=== PATIENT | female | born 2000 | race American Indian/Alaskan Native ===

== ENCOUNTER 2021-11-08 12:09 | Emergency (ER) | payer OTHER ==
[2021-11-08 12:26] VITALS: BP 109/68
--- NOTE | 2021-11-08 15:40 | Emergency Department Report ---
ED Back Pain/Injury HPI - General Chief Complaint: Pain General Stated Complaint: LOWER BACK PAIN/17 WKS PREG Source: patient Limitations: No Limitations - History of Present Illness Initial Comments: Patient is a A0 21-year-old -[place]ic female who is approximately 14 weeks gestation presents to the ED with acute onset low back pain that radiates to the buttocks for the last 1 week. Patient states that she has been taking Tylenol with no relief. Patient denies fall, traumatic injury, heavy lifting, fever, chills, abdominal pain, vaginal bleeding, vaginal discharge, dizziness, syncope, nausea and vomiting, numbness and tingling or weakness of lower extremities bilaterally. MD Complaint: back pain (Low back pain) -: Sudden, week(s) (1) Similar Symptoms Previously: No Place: home Radiation: none Severity: moderate Severity scale (0 -10): 6 Quality: sharp, aching Consistency: constant Improves With: none Worsens With: movement Context: turning/twisting Associated Symptoms: denies other symptoms. denies: confusion, weakness, chest pain, numbness, difficulty walking, cough, difficulty urinating, diaphoresis, fever/chills, constipation, headaches, abdominal pain, loss of appetite, malaise, nausea/vomiting, rash, seizure, shortness of breath, syncope, other - Related Data Previous Rx's Medication Instructions Recorded Last Taken Type Acetaminophen [Tylenol] 500 mg PO Q6HR PRN #40 tablet 11/08/21 Unknown Rx Baclofen 20 mg PO Q12H PRN #30 tab 11/08/21 Unknown Rx Allergies Allergy/AdvReac Type Severity Reaction Status Date / Time No Known Allergies Allergy Verified 11/08/21 12:26 ED Review of Systems ROS: Stated complaint: LOWER BACK PAIN/17 WKS PREG Other details as noted in HPI Constitutional: denies: chills, fever Eyes: denies: eye pain, eye discharge, vision change ENT: denies: ear pain, throat pain Respiratory: denies: cough, shortness of breath, wheezing Cardiovascular: denies: chest pain, palpitations Endocrine: no symptoms reported Gastrointestinal: denies: abdominal pain, nausea, vomiting, diarrhea Genitourinary: denies: urgency, dysuria, discharge Musculoskeletal: back pain (Low back pain). denies: joint swelling, arthralgia Skin: denies: rash, lesions Neurological: denies: headache, weakness, paresthesias Psychiatric: denies: anxiety, depression Hematological/Lymphatic: denies: easy bleeding, easy bruising ED Past Medical Hx - Past Medical History Previous Medical History?: No - Social History Smoking Status: Never Smoker Substance Use Type: None - Medications Home Medications: Home Medications Medication Instructions Recorded Confirmed Last Taken Type Acetaminophen [Tylenol] 500 mg PO Q6HR PRN #40 tablet 11/08/21 Unknown Rx Baclofen 20 mg PO Q12H PRN #30 tab 11/08/21 Unknown Rx ED Physical Exam - General Limitations: No Limitations General appearance: alert, in no apparent distress - Head Head exam: Present: atraumatic, normocephalic, normal inspection - Eye Eye exam: Present: normal appearance, PERRL, EOMI Pupils: Present: normal accommodation - ENT ENT exam: Present: normal exam, normal orophraynx, mucous membranes moist, TM's normal bilaterally, normal external ear exam - Neck Neck exam: Present: normal inspection, full ROM. Absent: tenderness - Respiratory Respiratory exam: Present: normal lung sounds bilaterally. Absent: respiratory distress, wheezes, rales, rhonchi, chest wall tenderness, accessory muscle use, decreased breath sounds, prolonged expiratory - Cardiovascular Cardiovascular Exam: Present: regular rate, normal rhythm, normal heart sounds. Absent: systolic murmur, diastolic murmur, rubs, gallop - GI/Abdominal GI/Abdominal exam: Present: soft, normal bowel sounds. Absent: tenderness, guarding, rebound, hyperactive bowel sounds, hypoactive bowel sounds, organomegaly - Extremities Exam Extremities exam: Present: normal inspection, full ROM, normal capillary refill. Absent: tenderness, pedal edema, joint swelling, calf tenderness - Back Exam Back exam: Present: normal inspection, full ROM, tenderness (Palpable lumbosacral and coccygeal paraspinal musculoskeletal tenderness), muscle spasm, paraspinal tenderness. Absent: CVA tenderness (R), CVA tenderness (L), vertebral tenderness, rash noted - Neurological Exam Neurological exam: Present: alert, oriented X3, CN II-XII intact, normal gait, reflexes normal - Psychiatric Psychiatric exam: Present: normal affect, normal mood - Skin Skin exam: Present: warm, dry, intact, normal color. Absent: rash ED Course Vital Signs 11/08/21 12:21 Temperature 98.4 F Pulse Rate 101 H Respiratory 16 Rate Blood Pressure 109/68 O2 Sat by Pulse 99 Oximetry ED Medical Decision Making - Medical Decision Making This is a A0 21-year-old -[place] female who is approximately 14 weeks gestation presents to the ED with acute onset low back pain that radiates to the buttocks for the last 1 week. Patient states that she has been taking Tylenol with no relief. In the ED, patient is alert and oriented x3 and is not in any distress. Patient was discharged home on medications based on the history and physical exam findings. Patient symptoms are likely musculo skeletal. Patient was discharged home and advised to follow-up with the [facility] physician in 5 to 7 days for reevaluation or return to the ED immediately if symptoms get worse. - Differential Diagnosis Muscle spasm; muscle strain; Critical care attestation.: If time is entered above; I have spent that time in minutes in the direct care of this critically ill patient, excluding procedure time. ED Disposition Clinical Impression: Spasm of muscle of lower back, Strain of muscle, fascia and tendon of lower back, initial encounter Acute low back pain without sciatica Qualifiers: Back pain laterality: bilateral Qualified Code(s): M54.50 - Low back pain, unspecified Disposition: 01 HOME / SELF CARE / HOMELESS Is pt being admited?: No Does the pt Need Aspirin: No Condition: Stable Instructions: Muscle Cramps and Spasms, [id number], Lumbosacral Strain, Low Back Sprain or Strain Rehab-SportsMed, Tailbone Injury, [id number] Additional Instructions: Your symptoms as musculoskeletal, therefore take medications as advised, drink plenty of fluids and follow-up with your primary care physician in 5 to 7 days for reevaluation. Return to the ED immediately if symptoms get worse. Prescriptions: Acetaminophen [Tylenol] 500 mg PO Q6HR PRN #40 tablet PRN Reason: Pain , Severe (7-10) Baclofen 20 mg PO Q12H PRN #30 tab PRN Reason: Muscle Spasm Referrals: MELIDA PAVON MD [Primary Care Provider] - 3-5 Days Time of Disposition: 15:39 Print Language: UZBEK
== END 2021-11-08 16:15 | disposition home or self-care (01) ==
LOC: ED 12:09
DX: O26.892 Other specified pregnancy related conditions, second trimester (principal); S39.012A Strain of muscle, fascia and tendon of lower back, initial encounter; M62.830 Muscle spasm of back; X58.XXXA Exposure to other specified factors, initial encounter; Y93.89 Activity, other specified; Y92.89 Other specified places as the place of occurrence of the external cause; Y99.8 Other external cause status; Z3A.14 14 weeks gestation of pregnancy
CPT/HCPCS: 99282

== ENCOUNTER 2022-01-26 18:21 | Inpatient (IN) | payer OTHER ==
[2022-01-26] MEDS ORDERED: fentaNYL 100 MCG/2 ML INJ IV PRN (19:59)
[2022-01-26] MEDS ORDERED: LOPERAMIDE 2 MG CAP PO PRN (19:59)
[2022-01-26] MEDS ORDERED: ONDANSETRON 4 MG/2 ML INJ IV PRN (19:59)
[2022-01-26] MEDS ORDERED: CARBOPROST TROMETHAMINE 250 MCG/1 ML INJ IM PRN (19:59)
[2022-01-26] MEDS ORDERED: OXYTOCIN 10 UNIT/1 ML INJ IM PRN (19:59)
[2022-01-26] MEDS ORDERED: METHYLERGONOVINE MALEATE 0.2 MG/ML VIAL IM PRN (19:59)
[2022-01-26] MEDS ORDERED: BUTORPHANOL 2 MG/1 ML INJ IV PRN (19:59)
[2022-01-26] MEDS ORDERED: miSOPROStol 200 MCG TAB PR PRN (19:59)
[2022-01-26] MEDS ORDERED: MINERAL OIL 30 ML ORAL LIQD PO PRN (19:59)
[2022-01-26] MEDS ORDERED: TERBUTALINE 1 MG/1 ML INJ SUB-Q PRN (19:59)
[2022-01-26] MEDS ORDERED: LIDOCAINE (2%) 20 MG/1 ML VIAL 20 ML MDV INFILTRATI ONE (19:59)
[2022-01-26] MEDS ORDERED: ePHEDrine SULFATE 50 MG/1 ML INJ IV PRN (19:59)
[2022-01-26] MEDS ORDERED: LACTATED RINGERS 1,000 ML IV SCH (20:00)
[2022-01-26] MEDS ORDERED: OXYTOCIN DRIP 30 UNITS/500 ML BAG IV SCH (20:00)
--- NOTE | 2022-01-26 20:09 | History and Physical Report ---
History of Present Illness Date of examination: 01/26/22 Chief complaint: Admitted for IOL @ 28wks IUFD History of present illness: EDC Calculations by LMP: 04/14/2022 Past History : 1 Term Births: 0 Premature Births: 0 Living Children: 0 Para: 0 Mult. Births: 0 Prev : 0 Prev. attempt? 0 Aborta: 0 Elect. Ab: 0 Spont. Ab: 0 Ectopics: 0 Past Medical History: Reviewed and updated today: Asthma - last attack 2020 - has albuterol inhaler Headaches(Migraines) Past Surgical History: Reviewed and updated today: negative Family History Summary: Father - Has Family History of Hypertension - Entered On: 10/12/2021 Father - Has Family History of Diabetes - Entered On: 10/12/2021 General Comments - FH: Father - CHF Social History: Patient is single Smoking History: Patient has never smoked. Risk Factors: Smoked Tobacco Use: Never smoker Smokeless Tobacco Use: Never Counseled to Quit/Cut Down: yes Passive Smoke Exposure: no HIV High Risk Behavior: no Caffeine Use: 0 drinks per day Exercise: no Seatbelt Use: preg-certified alcohol and drug counselor % No Dietary Counseling Reason: pn yes Alcohol Use: yes Type: weekly use prior to Drug Use: no Past Medical History Anesthesia Complications: negative Anemia: negative Autoimmune Disorder: negative Bleeding Disorder: negative Blood Transfusions: negative Breast Disease: negative Diabetes: negative Heart Disease: negative Hypertension: negative Hepatitis/Liver Disease: negative Kidney Disease/UTI: negative Neurologic/Epilepsy/Migraines: negative Phlebitis/Varicosities: negative Psychiatric: negative Pulmonary Disease/Asthma: positive, asthma Thyroid Disease: negative Hospitalizations: negative Surgery (Non-twisting operator): negative Abnormal PAP: negative LEANA Exposure: negative Infertility: negative Uterine Anomaly: negative Uterine Surgery (not C/S): negative Other Gynecologic Problems: negative Family Hx: Father - CHF Social Hx: Patient is single Smoking History: Patient has never smoked. Infection History Hx of STD: none HIV Risk Eval: no Hepatitis B Risk Eval: low risk Personal hx. of genital herpes: no Rash, Viral, or Febrile illness since last LMP? no Varicella/Chicken Pox Status: Unknown TB Risk: no Genetic History Congenital Heart Defect: Mom: no Dad: no Blanca Disease: Mom: no Dad: no Thalassemia Mom: no Dad: no Neural Tube Defect Mom: no Dad: no Down's Syndrome Mom: no Dad: no Stephen-Sachs Mom: no Dad: no Sickle Cell Disease/Trait Mom: no Dad: no Hemophilia Mom: no Dad: no Muscular Dystrophy Mom: no Dad: no Cystic Fibrosis Mom: no Dad: no Fátima Chorea Mom: no Dad: no Mental Retardation Mom: no Dad: no Fragile X Mom: no Dad: no Other Genetic/Chromosomal Disorder Mom: no Dad: no Child w/other defect Mom: no Dad: no Enviromental Exposures Enviromental Exposures Reviewed Xray Exposure: no Medication, drug, or alcohol use since LMP: no Chemical/Other Exposure: no Exposure to Cat Liter: no Hx of Parvovirus (Fifth Disease): no Occupational Exposure to Children: none 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 Medications (reviewed today): None Current Allergies (reviewed today): No known allergies Past History Past Medical History: other (see HPI) Past Surgical History: other (see HPI) STRATEGY CONSULTANT History: other (see HPI) Family/Genetic History: other (see HPI) Social history: no significant social history, single, lives with family - Obstetrical History Expected Date of Delivery: 04/14/22 Actual Gestation: 28 Week(s) 6 Day(s) : 1 Para: 0 Hx # Term Pregnancies: 0 Number of Pregnancies: 0 Spontaneous Abortions: 0 Induced : 0 Number of Living Children: 0 Medications and Allergies Allergies Allergy/AdvReac Type Severity Reaction Status Date / Time No Known Allergies Allergy Verified 11/08/21 12:26 Home Medications Medication Instructions Recorded Confirmed Last Taken Type Acetaminophen [Tylenol] 500 mg PO Q6HR PRN #40 tablet 11/08/21 Unknown Rx Baclofen 20 mg PO Q12H PRN #30 tab 11/08/21 Unknown Rx Active Meds: Active Medications Acetaminophen (Acetaminophen 325 Mg Tab) 650 mg PO Q4H PRN PRN Reason: Pain, Mild (1-3) Butorphanol Tartrate (Butorphanol 2 Mg/1 Ml Inj) 1 mg IV Q2H PRN PRN Reason: Pain, Moderate(4-6) LABOR PAIN Butorphanol Tartrate (Butorphanol 2 Mg/1 Ml Inj) 2 mg IV Q2H PRN PRN Reason: Pain , Severe (7-10) Carboprost Tromethamine (Carboprost Tromethamine 250 Mcg/1 Ml Inj) 250 mcg IM ONCE PRN PRN Reason: Uterine Bleeding Ephedrine Sulfate (Ephedrine Sulfate 50 Mg/1 Ml Inj) 10 mg IV Q2M PRN PRN Reason: Hypotension Fentanyl (Fentanyl 100 Mcg/2 Ml Inj) 100 mcg IV Q2H PRN PRN Reason: Pain,Severe (7-10) LABOR PAIN Lactated Ringer's (Lactated Ringers) 1,000 mls @ 125 mls/hr IV DIRECT DANICA Oxytocin/Sodium Chloride (Pitocin/Ns 30 Unit/500ml) 30 units in 500 mls @ 40 mls/hr IV TITR DANICA; Protocol Lidocaine (Lidocaine (2%) 20 Mg/1 Ml Vial 20 Ml Mdv) 20 ml INFILTRATI ONCE ONE Stop: 01/26/22 20:00 Loperamide HCl (Loperamide 2 Mg Cap) 2 mg PO ONCE PRN PRN Reason: give with Hemabate Methylergonovine Maleate (Methylergonovine Maleate 0.2 Mg/Ml Vial) 0.2 mg IM ONCE PRN PRN Reason: Uterine Bleeding Mineral Oil (Mineral Oil 30 Ml Oral Liqd) 30 ml PO QHS PRN PRN Reason: Constipation Misoprostol (Misoprostol 200 Mcg Tab) 800 mcg NV ONCE PRN PRN Reason: Uterine Bleeding Misoprostol (Misoprostol 25 Mcg Tab) 50 mcg PO Q4H DANICA Ondansetron HCl (Ondansetron 4 Mg/2 Ml Inj) 4 mg IV Q8H PRN PRN Reason: Nausea And Vomiting Oxytocin (Oxytocin 10 Unit/1 Ml Inj) 10 unit IM ONCE PRN PRN Reason: Uterine Bleeding Terbutaline Sulfate (Terbutaline 1 Mg/1 Ml Inj) 0.25 mg SUB-Q ONCE PRN PRN Reason: Hyperstimulation/Hypertonicity Review of Systems All systems: negative - Vital Signs Vital signs: Vital Signs Pulse BP 99 H 134/79 01/26/22 18:37 01/26/22 18:37 Temp Pulse Resp BP Pulse Ox 90 108/58 01/26/22 19:19 01/26/22 19:19 - Physical Exam Cardiovascular: Regular rate Lungs: Positive: Normal air movement Abdomen: Positive: normal appearance, soft Genitourinary (Female): Positive: normal perenium Vulva: right: normal Vagina: Positive: normal moisture Uterus: Positive: normal size, normal contour Anus/Rectum: Positive: normal perianal skin Extremities: Positive: normal Deep Tendon Reflex Grade: Normal +2 - Obstetrical Uterine Contraction Monitor Mode: External Uterine Contraction Pattern: Absent Uterine Tone Measurement Phase: Resting Results Result Diagrams: 01/26/22 20:30 All other labs normal. Assessment and Plan 21y/i @ 28+1 admitted for IOL w/ IUFD dx in office today. Baby measured 25wks via u/s, pt reports feeling movement this morning before her appointment. Discussed plan of care for serial IOL possibly taking several days. Pain management discussed. all questions addressed. Admission orders in EMR. - Patient Problems (1) Asthma Current Visit: Yes Status: Acute Qualifiers: Asthma severity: mild Asthma persistence: intermittent (2) demise Current Visit: Yes Status: Acute (3) 28 weeks gestation of Current Visit: Yes Status: Acute (4) Anemia Current Visit: Yes Status: Acute Qualifiers: Anemia type: iron deficiency
[2022-01-26] MEDS: miSOPROStol 25 MCG TAB PO SCH (20:42)
[2022-01-26] MEDS: ACETAMINOPHEN 325 MG TAB PO PRN (21:21)
[2022-01-26 21:32] LABS: Hematocrit 28.2 % (30.3-42.9); Hemoglobin 9.6 gm/dl (10.1-14.3); Mean Corpuscular HGB Conc 34 % (30-34); Mean Corpuscular Volume 87 fl (79-97); Platelet Count 167 K/mm3 (140-440); Red Blood Count 3.23 M/mm3 (3.65-5.03); Red Cell Distribution Width 14.3 % (13.2-15.2)
[2022-01-26] MEDS ORDERED: ZOLPIDEM 5 MG TAB PO ONE (22:01)
[2022-01-27] MEDS: miSOPROStol 25 MCG TAB PO SCH ×3 (00:32→08:55)
[2022-01-27] MEDS: ACETAMINOPHEN 325 MG TAB PO PRN (09:07)
[2022-01-27] MEDS: miSOPROStol 200 MCG TAB PO SCH ×2 (13:05→18:01)
[2022-01-27] MEDS: BUTORPHANOL 2 MG/1 ML INJ IV PRN ×4 (13:05→23:52)
--- NOTE | 2022-01-27 16:49 | Event Note ---
Date: 01/27/22 (Late Entry, pt assessed at 0830) Pt examined this AM. States that she is feeling some vaginal pressure. Cervical exam: feels like possible parts in vagina. Pt denies feeling contractions, no LOF or vaginal bleeding. No contractions seen on monitor. Will change Cytotec PO 400mcg q 6 hrs. RN and patient aware.
--- NOTE | 2022-01-27 17:00 | Progress Note ---
Assessment and Plan A: 21 y.o. IUP @ 28+ wks, IUFD. - Patient Problems (1) demise Current Visit: Yes Status: Acute Plan to address problem: Continue with IOL. Will administer dose of Cytotec 400 mcg vaginally. Subjective - Subjective Date of service: 01/27/22 Principal diagnosis: IUP @ 28+ wks Patient reports: other (Vaginal pressure) Objective - Vital Signs Vital Signs: Vital Signs - 12hr 01/27/22 01/27/22 01/27/22 05:58 08:45 08:54 Pulse Rate 81 90 Blood Pressure 129/81 130/81 O2 Sat by Pulse Oximetry O2 Sat by Pulse 99 Oximetry [ Anterior Bilateral Throughout] O2 Sat by Pulse 99 Oximetry [ Posterior Bilateral Throughout] 01/27/22 01/27/22 01/27/22 08:55 09:45 12:45 Pulse Rate 82 71 77 Blood Pressure 110/52 119/60 O2 Sat by Pulse 98 Oximetry O2 Sat by Pulse Oximetry [ Anterior Bilateral Throughout] O2 Sat by Pulse Oximetry [ Posterior Bilateral Throughout] 01/27/22 01/27/22 01/27/22 13:45 14:46 15:45 Pulse Rate 71 69 71 Blood Pressure 123/56 121/56 113/56 O2 Sat by Pulse Oximetry O2 Sat by Pulse Oximetry [ Anterior Bilateral Throughout] O2 Sat by Pulse Oximetry [ Posterior Bilateral Throughout] 01/27/22 16:45 Pulse Rate 74 Blood Pressure 121/80 O2 Sat by Pulse Oximetry O2 Sat by Pulse Oximetry [ Anterior Bilateral Throughout] O2 Sat by Pulse Oximetry [ Posterior Bilateral Throughout] - Exam Cardiovascular: Regular rate Lungs: Normal air movement Abdomen: Present: normal appearance, soft Vulva: both: normal Cervical Dilatation: 0 (Anterior, soft) Cervical Effacement Percentage: 50 station: -3 Uterine Contraction Pattern: Regular Uterine Tone Measurement Phase: Resting Uterine Contraction Intensity: Mild - Labs Labs: Abnormal Labs 01/26/22 20:30 RBC 3.23 L Hgb 9.6 L Hct 28.2 L Laboratory Results - last 24 hr 01/26/22 01/26/22 01/26/22 20:30 20:30 20:30 WBC 6.7 RBC 3.23 L Hgb 9.6 L Hct 28.2 L MCV 87 MCH 30 MCHC 34 RDW 14.3 Plt Count 167 Syphilis IgG/IgM Ab Nonreactive SARS-CoV-2 (PCR) Blood Type O POSITIVE Antibody Screen Negative 01/27/22 09:56 WBC RBC Hgb Hct MCV MCH MCHC RDW Plt Count Syphilis IgG/IgM Ab SARS-CoV-2 (PCR) Negative Blood Type Antibody Screen
[2022-01-27] MEDS ORDERED: miSOPROStol 200 MCG TAB VG ONE (18:00)
--- NOTE | 2022-01-27 18:58 | Event Note ---
Date: 01/27/22 400 mcg administered vaginally per RN @ 1800. Will continue to administer additional doses q 6 hrs PO.
--- NOTE | 2022-01-27 21:27 | Progress Note ---
Assessment and Plan - Patient Problems (1) 28 weeks gestation of Current Visit: Yes Status: Acute (2) demise Current Visit: Yes Status: Acute Plan to address problem: -cont with IOL - will transition to pitocin when in active labor -cont cervidil for now Subjective - Subjective Date of service: 01/27/22 Principal diagnosis: IUP @ 28+ wks with IUFD Interval history: Pt c/o contraction pain relieved some with pain meds. states that pressure is sl ightly increased and pain is increased. Pt agrees to cervical exam Patient reports: other (Vaginal pressure) Objective - Vital Signs Vital Signs: Vital Signs - 12hr 01/27/22 01/27/22 01/27/22 09:45 12:45 13:45 Temperature Pulse Rate 71 77 71 Respiratory Rate Blood Pressure 110/52 119/60 123/56 O2 Sat by Pulse Oximetry O2 Sat by Pulse Oximetry [ Anterior Bilateral Throughout] O2 Sat by Pulse Oximetry [ Posterior Bilateral Throughout] 01/27/22 01/27/22 01/27/22 14:46 15:45 16:45 Temperature Pulse Rate 69 71 74 Respiratory Rate Blood Pressure 121/56 113/56 121/80 O2 Sat by Pulse Oximetry O2 Sat by Pulse Oximetry [ Anterior Bilateral Throughout] O2 Sat by Pulse Oximetry [ Posterior Bilateral Throughout] 01/27/22 01/27/22 01/27/22 17:46 18:46 19:13 Temperature Pulse Rate 80 82 Respiratory Rate Blood Pressure 127/83 121/68 O2 Sat by Pulse Oximetry O2 Sat by Pulse 100 Oximetry [ Anterior Bilateral Throughout] O2 Sat by Pulse 100 Oximetry [ Posterior Bilateral Throughout] 01/27/22 01/27/22 01/27/22 19:15 19:45 20:39 Temperature 97.7 F Pulse Rate 75 79 Respiratory 16 Rate Blood Pressure 107/57 O2 Sat by Pulse 100 98 Oximetry O2 Sat by Pulse Oximetry [ Anterior Bilateral Throughout] O2 Sat by Pulse Oximetry [ Posterior Bilateral Throughout] 01/27/22 01/27/22 01/27/22 20:44 20:46 20:49 Temperature Pulse Rate 76 75 75 Respiratory Rate Blood Pressure 143/65 O2 Sat by Pulse 99 99 Oximetry O2 Sat by Pulse Oximetry [ Anterior Bilateral Throughout] O2 Sat by Pulse Oximetry [ Posterior Bilateral Throughout] 01/27/22 01/27/22 01/27/22 20:54 20:59 21:04 Temperature Pulse Rate 92 H 80 81 Respiratory Rate Blood Pressure O2 Sat by Pulse 97 96 96 Oximetry O2 Sat by Pulse Oximetry [ Anterior Bilateral Throughout] O2 Sat by Pulse Oximetry [ Posterior Bilateral Throughout] 01/27/22 01/27/22 01/27/22 21:09 21:14 21:19 Temperature Pulse Rate 81 77 75 Respiratory Rate Blood Pressure O2 Sat by Pulse 95 96 96 Oximetry O2 Sat by Pulse Oximetry [ Anterior Bilateral Throughout] O2 Sat by Pulse Oximetry [ Posterior Bilateral Throughout] - Exam Cervical Dilatation: 1 Cervical Effacement Percentage: 90 station: -1 Uterine Contraction Pattern: Regular Uterine Tone Measurement Phase: Resting Uterine Contraction Intensity: Moderate - Labs Labs: Abnormal Labs 01/26/22 20:30 RBC 3.23 L Hgb 9.6 L Hct 28.2 L Laboratory Results - last 24 hr 01/26/22 01/26/22 01/26/22 20:30 20:30 20:30 WBC 6.7 RBC 3.23 L Hgb 9.6 L Hct 28.2 L MCV 87 MCH 30 MCHC 34 RDW 14.3 Plt Count 167 Syphilis IgG/IgM Ab Nonreactive SARS-CoV-2 (PCR) Blood Type O POSITIVE Antibody Screen Negative 01/27/22 09:56 WBC RBC Hgb Hct MCV MCH MCHC RDW Plt Count Syphilis IgG/IgM Ab SARS-CoV-2 (PCR) Negative Blood Type Antibody Screen
[2022-01-28] MEDS: BUTORPHANOL 2 MG/1 ML INJ IV PRN (03:20)
--- NOTE | 2022-01-28 04:13 | Event Note ---
Date: 01/28/22 Called by RN and notified pt was complete. I arrived at bedside in less than 5 minutes and baby was delivered in sac with placenta a single unit. No bleeding lacerations noted on my exam.
[2022-01-28] MEDS ORDERED: diphenhydrAMINE 25 MG CAP PO PRN (04:17)
[2022-01-28] MEDS ORDERED: MAGNESIUM HYDROXIDE (MOM) ORAL LIQD UDC PO PRN (04:17)
[2022-01-28] MEDS ORDERED: HYDROcodone/ACETAMINOPHEN 5-325 MG TAB PO PRN (04:17)
[2022-01-28] MEDS ORDERED: ONDANSETRON 4 MG/2 ML INJ IV PRN (04:17)
[2022-01-28] MEDS ORDERED: WITCH HAZEL/ GLYCERIN PAD TP PRN (04:17)
[2022-01-28] MEDS ORDERED: PROMETHAZINE 25 MG RECT SUPP PR PRN (04:17)
[2022-01-28] MEDS ORDERED: PROMETHAZINE 25 MG TAB PO PRN (04:17)
--- NOTE | 2022-01-28 04:17 | Procedure Note ---
OB Delivery Note - Delivery Date of Delivery: 01/28/22 Surgeon: IAN CATHERINE Estimated blood loss: 200cc - Vaginal Delivery presentation: vertex Intrapartum events: none Delivery induction: misoprostol Delivery monitor: none Delivery placenta: spontaneous Episiotomy: none Delivery laceration: none Anesthesia: intravenous Delivery comments: I arrived a bedside to note baby, amniotic sac and placeta as one unit on the [place] warmer in a basin. Bag was ruptured by provider and dark bluid noted, skin slippage as well as irregular shape of head noted. No lacerations were noted on my exam. Pt has minimal bleeding at this time. - A Gender: Male
[2022-01-28] MEDS: IBUPROFEN 800 MG TAB PO SCH ×4 (05:43→23:10)
--- NOTE | 2022-01-28 13:33 | Discharge Summary ---
Providers - Providers Date of Admission: 01/26/22 19:59 Date of discharge: 01/28/22 (desires d/c home today) Attending physician: ROBBIE STEPHENSON Primary care physician: ROBBIE STEPHENSON Hospitalization Reason for admission: IOL for demise Condition: Good Pertinent studies: H&H ordered for 1600, no s/s of anemia Procedures: demised Hospital course: uncomplicated and course Disposition: 01 HOME / SELF CARE / HOMELESS Final Discharge Diagnosis (Prints w/discharge instructions): vaginal of stillborn Time spent for discharge: 20 - Discharge Diagnoses (1) Asthma Status: Acute Qualifiers: Asthma severity: mild Asthma persistence: intermittent (2) demise Status: Acute (3) Anemia Status: Acute Qualifiers: Anemia type: iron deficiency (4) (spontaneous vaginal delivery) Status: Acute Core Measure Documentation - Palliative Care Palliative Care/ Comfort Measures: Not Applicable - Core Measures Any of the following diagnoses?: none Exam - Constitutional Vitals: Temp Pulse Resp BP Pulse Ox 99.0 F 75 20 125/80 97 01/28/22 11:25 01/28/22 11:25 01/28/22 11:30 01/28/22 11:25 01/28/22 11:25 General appearance: Present: no acute distress, well-nourished - EENT Eyes: Present: PERRL ENT: hearing intact, clear oral mucosa - Neck Neck: Present: supple, normal ROM - Respiratory Respiratory effort: normal Respiratory: bilateral: CTA - Cardiovascular Heart Sounds: Present: S1 & S2. Absent: rub, click - Extremities Extremities: No edema Peripheral Pulses: within normal limits - Abdominal General gastrointestinal: Present: soft, non-tender, non-distended, normal bowel sounds Female genitourinary: Present: normal - Integumentary Integumentary: Present: clear, warm, dry - Musculoskeletal Musculoskeletal: gait normal, strength equal bilaterally - Psychiatric Psychiatric: appropriate mood/affect, intact judgment & insight - Neurologic Neurologic: CNII-XII intact, moves all extremities - Additional findings Additional findings: VSSAF, lochia scant, emotionally appropriate after birthing stillborn Plan Activity: no restrictions Diet: regular Follow up with: ROBBIE STEPHENSON MD [Primary Care Provider] - 6 Weeks (Please call [phone] to schedule a follow up with [facility] in 4-6 weeks. We will call you in 2 weeks for a follow call. Please call our office for any questions or concerns. )
[2022-01-28 16:15] LABS: Hematocrit 29.3 % (30.3-42.9); Hemoglobin 9.8 gm/dl (10.1-14.3)
[2022-01-29] MEDS: IBUPROFEN 800 MG TAB PO SCH (05:13)
[2022-01-29] MEDS ORDERED: TETANUS,DIPH,PERTUSS(ACELL) VACCINE 0.5 ML SYRINGE IM ONE (06:00)
[2022-01-29 09:23] VITALS: BP 114/60
== END 2022-01-29 10:30 | disposition home or self-care (01) | DRG 775 ==
LOC: TRG 18:21 → LD 18:22 → TRG 19:59 → OB 01-28 10:51
PROVIDERS: ADMIT Obstetrics & Gynecology; ATTEND Obstetrics & Gynecology
PROC: 10E0XZZ Delivery of Products of Conception, External Approach (ICD-10-PCS; principal; 2022-01-28)
PROC: 3E0P7VZ Introduction of Hormone into Female Reproductive, Via Natural or Artificial Opening (ICD-10-PCS; 2022-01-28)
PROC: 3E0234Z Introduction of Serum, Toxoid and Vaccine into Muscle, Percutaneous Approach (ICD-10-PCS; 2022-01-29)
DX: O36.4XX0 Maternal care for intrauterine death, not applicable or unspecified (principal); Z3A.28 28 weeks gestation of pregnancy; J45.909 Unspecified asthma, uncomplicated; Z20.822 Contact with and (suspected) exposure to COVID-19; Z37.1 Single stillbirth; Z23 Encounter for immunization; O99.52 Diseases of the respiratory system complicating childbirth; O99.354 Diseases of the nervous system complicating childbirth; G43.909 Migraine, unspecified, not intractable, without status migrainosus; O99.02 Anemia complicating childbirth; D50.9 Iron deficiency anemia, unspecified; O60.14X0 Preterm labor third trimester with preterm delivery third trimester, not applicable or unspecified
CPT/HCPCS: 36415; 85014; 85018; 85027; 86592; 86850; 86900; 86901; 88307; G0378; J0595; J2590; J7120; U0003